=== PATIENT | female | born 1950 | race Caucasian/White ===

== ENCOUNTER → 2017-10-28 14:00 | Emergency (ER) | payer MEDICARE, BC ==
[~2017-10-28 14:00] MED LIST: NS 0.9% 1000 ML* 1,000 ML IV ONE; NS 0.9% 50 ML* 50 ML ONE; Pantoprazole IV* 40 MG IV ONE; cefTRIAXone VIAL(*) 1,000 MG in D5W 50 ML BAG* 50 ML IVPB ONE; cefTRIAXone VIAL(*) 1,000 MG in NS 0.9% 50 ML* 50 ML IVPB ONE
[2017-10-28 15:57] LABS: Hematocrit 33 % (35-47); Hemoglobin 10.5 g/dl (12.0-16.0); Mean Corpuscular HGB Conc 32 g/dl (31-36); Mean Corpuscular Hemoglobin 27 pg (27-31); Mean Corpuscular Volume 83 fL (80-97); Mean Platelet Volume 7 um3 (7.4-10.4); Red Blood Count 3.94 10^6/ul (4.0-5.4); Red Cell Distribution Width 16 % (10.5-15); White Blood Count 8.4 10^3/ul (3.5-10.8)
--- NOTE | 2017-10-28 16:08 | RAD ---
Indication: Shortness of breath. 2 views of the chest are reviewed. No mediastinal shift is noted. Heart is of normal size and configuration. There is a hiatal hernia present. Airspace disease and density is noted in the right lung base. Left lung field is clear. IMPRESSION: Suggestion of right basilar airspace disease which May represent atelectasis or pneumonia. Other etiologies in the right base cannot BE excluded.
[2017-10-28 16:13] LABS: Troponin I 0.04 ng/mL (<0.04)
[2017-10-28 16:19] LABS: Albumin 4.1 g/dL (3.2-5.2); BUN/Creatinine Ratio 21.3 (8-20); C Reactive Protein 16.89 mg/L (< 5.00); Calcium 9.2 mg/dL (8.6-10.3); EGFR African American 91.5 (>60); EGFR Non-African American 71.1 (>60); Globulin 3.1 g/dL (2-4); Potassium 3.9 mmol/L (3.5-5.0); Total Bilirubin 0.3 mg/dL (0.2-1.0); Total Protein 7.2 g/dL (6.4-8.9)
--- NOTE | 2017-10-28 17:59 | ED ---
Osman Croft Angela, scribed for Power Zimmer MD on 10/28/17 at 1503 . Shortness of Breath - HPI Summary HPI Summary: This pt is a 67 y/o female presenting to [facility] c/o SOB on minimal exertion since yesterday. Pt reports that she had a right lobe lung biopsy yesterday at [facility] in [facility]. Pt states that she sees a rack pusher in [facility] for nodules in her lungs, which have been stable for some time. She notes she had a CT scan done 1 week ago that showed enlargement of the nodules within a 6 month - 1 year period. Last night, pt noticed that she had SOB on minimal exertion, which continues today. She additionally c/o coughing up some blood last night, very dark stools ("like black"), gurgling "air movement" in abd. She denies chest pain, fever, rhinorrhea, sore throat, nausea, vomiting, abd pain. Pt is not on any anticoagulants. She last took Meloxicam 3 days ago (02/06). She believes her last colonoscopy was in 2009. Pt had breast CA 23 years ago and had lumpectomy. Pt is followed up by Dr. Ren Pak ([phone]) at [facility]. Her biopsy was done by Dr. Ugalde ([phone]) at [facility]. - History of Current Complaint Chief Complaint: EDShortnessOfBreath Time Seen by Provider: 10/28/17 14:59 Hx Obtained From: Patient Onset/Duration: Lasting Days - 1, Still Present Timing: Constant Dyspnea At: Exertion - minimal Aggrevating Factors: Other - minimal exertion Alleviating Factors: Other - rest Associated Signs & Symptoms: Cough (Bloody Sputum) - Allergy/Home Medications Allergies/Adverse Reactions: Allergies Allergy/AdvReac Type Severity Reaction Status Date / Time Codeine Allergy GI Upset Verified 12/14/15 09:37 Latex Allergy Itching Verified 12/14/15 09:36 Home Medications: Home Medications Meloxicam(NF) [Mobic(NF)] 7.5 mg PO BID 10/28/17 [History Confirmed 10/28/17] Tramadol-Acetaminophen [Ultracet] 1 tab PO Q8HR 10/28/17 [History Confirmed 05/09] PMH/Surg Hx/FS Hx/Imm Hx Endocrine/Hematology History: Reports: Hx Thyroid Disease - HYPOTHYROIDISM Denies: Hx Diabetes Cardiovascular History: Reports: Hx Angina - THROAT TO CENTER CHEST, Hx Hypercholesterolemia, Other Cardiovascular Problems/Disorders - lung nodules Denies: Hx Hypertension, Hx Pacemaker/ICD Respiratory History: Reports: Other Respiratory Problems/Disorders - BENIGN LUNG NODULES GI History: Reports: Hx Gastroesophageal Reflux Disease, Hx Hiatal Hernia - NEW ON CT 12/20/13 History: Denies: Hx Dialysis, Hx Renal Disease Musculoskeletal History: Reports: Hx Arthritis Sensory History: Reports: Hx Contacts or Glasses Denies: Hx Hearing Aid Opthamlomology History: Reports: Hx Contacts or Glasses Psychiatric History: Denies: Hx Panic Disorder - Cancer History Cancer Type, Location and Year: LEFT breast cancer, in remission Hx Chemotherapy: Yes Hx Radiation Therapy: Yes Hx Palliative Cancer Treatment: Yes - LUMPECTOMY - Surgical History Surgery Procedure, Year, and Place: tonsilectomy; cholecystectomy; LEFT lumpectomy; lymph removal; LEFT TOTAL KNEE REPLACEMENT; LEFT FOOT BUNIONECTOMY Hx Anesthesia Reactions: No - Immunization History Date of Tetanus Vaccine: UTD Date of Influenza Vaccine: 08/2017 Infectious Disease History: No Infectious Disease History: Denies: Traveled Outside the [place] in Last 30 Days - Family History Known Family History: Positive: Cardiac Disease - grandmother, Other - Mother: CHF Negative: Diabetes - Social History Alcohol Use: Daily Alcohol Amount: glass of wine Substance Use Type: Reports: None Smoking Status (MU): Former Smoker Review of Systems Negative: Fever, Chills Negative: Sore Throat, Nasal Discharge Negative: Chest Pain Positive: Shortness Of Breath, Cough - blood Gastrointestinal: Other - gurgling "air movement", black stools Negative: Abdominal Pain, Vomiting, Nausea Genitourinary: Other Positive: no symptoms reported Skin: Negative Neurological: Negative All Other Systems Reviewed And Are Negative: Yes Physical Exam - Summary Physical Exam Summary: VITAL SIGNS: Reviewed. GENERAL: Patient is a well-developed and nourished female who is lying comfortable in the stretcher. Patient is not in any acute respiratory distress. HEAD AND FACE: No signs of trauma. No ecchymosis, hematomas or skull depressions. No sinus tenderness. EYES: PERRLA, EOMI x 2, No injected conjunctiva, no nystagmus. EARS: Hearing grossly intact. Ear canals and tympanic membranes are within normal limits. MOUTH: Oropharynx within normal limits. NECK: Supple, trachea is midline, no adenopathy, no JVD, no carotid bruit, no c- spine tenderness, neck with full ROM. CHEST: Symmetric, no tenderness at palpation LUNGS: Clear to auscultation bilaterally. No wheezing or crackles. CVS: Regular rate and rhythm, S1 and S2 present, no murmurs or gallops appreciated. ABDOMEN: Soft, non-tender. No signs of distention. No rebound no guarding, and no masses palpated. Bowel sounds are normal. Rectal Exam: Pt has melena. No external hemorrhoids. Normal sphincter tone. EXTREMITIES: FROM in all major joints, no edema, no cyanosis or clubbing. NEURO: Alert and oriented x 3. No acute neurological deficits. Speech is normal and follows commands. SKIN: Dry and warm Triage Information Reviewed: Yes Vital Signs On Initial Exam: Initial Vitals Temp Pulse Resp BP Pulse Ox 97.0 F 73 15 137/76 96 10/28/17 14:01 10/28/17 14:01 10/28/17 14:01 10/28/17 14:01 10/28/17 14:01 Vital Signs Reviewed: Yes - Jonathon Coma Scale Coma Scale Total: 15 Diagnostics - Vital Signs Vital Signs Temp Pulse Resp BP Pulse Ox 10/28/17 14:01 97.0 F 73 15 137/76 96 - Laboratory Lab Results: Lab Results 10/28/17 10/28/17 10/28/17 Range/Units 15:31 15:31 15:31 WBC (3.5-10.8) 10^3/ul RBC (4.0-5.4) 10^6/ul Hgb (12.0-16.0) g/dl Hct (35-47) % MCV (80-97) fL MCH (27-31) pg MCHC (31-36) g/dl RDW (10.5-15) % Plt Count (150-450) 10^3/ul MPV (7.4-10.4) um3 Neut % (Auto) (38-83) % Lymph % (Auto) (25-47) % Livingston % (Auto) (1-9) % Eos % (Auto) (0-6) % Baso % (Auto) (0-2) % Absolute Neuts (auto) (1.5-7.7) 10^3/ul Absolute Lymphs (auto) (1.0-4.8) 10^3/ul Absolute Monos (auto) (0-0.8) 10^3/ul Absolute Eos (auto) (0-0.6) 10^3/ul Absolute Basos (auto) (0-0.2) 10^3/ul Absolute Nucleated RBC 10^3/ul Nucleated RBC % APTT 28.0 (26.0-36.3) seconds Sodium (133-145) mmol/L Potassium (3.5-5.0) mmol/L Chloride (101-111) mmol/L Carbon Dioxide (22-32) mmol/L Anion Gap (2-11) mmol/L BUN (6-24) mg/dL Creatinine (0.51-0.95) mg/dL Est GFR ( Amer) (>60) Est GFR (Non-Af Amer) (>60) BUN/Creatinine Ratio (8-20) Glucose (70-100) mg/dL Lactic Acid (0.5-2.0) mmol/L Calcium (8.6-10.3) mg/dL Total Bilirubin (0.2-1.0) mg/dL AST (13-39) U/L ALT (7-52) U/L Alkaline Phosphatase (34-104) U/L Total Creatine Kinase (10-223) U/L CK-MB (CK-2) (0.6-6.3) ng/mL Troponin I (<0.04) ng/mL C-Reactive Protein (< 5.00) mg/L B-Natriuretic Peptide 93 ( - 100) pg/mL Total Protein (6.4-8.9) g/dL Albumin (3.2-5.2) g/dL Globulin (2-4) g/dL Albumin/Globulin Ratio (1-3) Blood Type AB Positive Antibody Screen Negative 10/28/17 10/28/17 10/28/17 Range/Units 15:31 15:31 15:31 WBC 8.4 (3.5-10.8) 10^3/ul RBC 3.94 L (4.0-5.4) 10^6/ul Hgb 10.5 L (12.0-16.0) g/dl Hct 33 L (35-47) % MCV 83 (80-97) fL MCH 27 (27-31) pg MCHC 32 (31-36) g/dl RDW 16 H (10.5-15) % Plt Count 339 (150-450) 10^3/ul MPV 7 L (7.4-10.4) um3 Neut % (Auto) 69.5 (38-83) % Lymph % (Auto) 18.9 L (25-47) % Livingston % (Auto) 8.1 (1-9) % Eos % (Auto) 2.6 (0-6) % Baso % (Auto) 0.9 (0-2) % Absolute Neuts (auto) 5.8 (1.5-7.7) 10^3/ul Absolute Lymphs (auto) 1.6 (1.0-4.8) 10^3/ul Absolute Monos (auto) 0.7 (0-0.8) 10^3/ul Absolute Eos (auto) 0.2 (0-0.6) 10^3/ul Absolute Basos (auto) 0.1 (0-0.2) 10^3/ul Absolute Nucleated RBC 0 10^3/ul Nucleated RBC % 0 APTT (26.0-36.3) seconds Sodium 139 (133-145) mmol/L Potassium 3.9 (3.5-5.0) mmol/L Chloride 106 (101-111) mmol/L Carbon Dioxide 28 (22-32) mmol/L Anion Gap 5 (2-11) mmol/L BUN 17 (6-24) mg/dL Creatinine 0.80 (0.51-0.95) mg/dL Est GFR ( Amer) 91.5 (>60) Est GFR (Non-Af Amer) 71.1 (>60) BUN/Creatinine Ratio 21.3 H (8-20) Glucose 94 (70-100) mg/dL Lactic Acid 0.9 (0.5-2.0) mmol/L Calcium 9.2 (8.6-10.3) mg/dL Total Bilirubin 0.30 (0.2-1.0) mg/dL AST 22 (13-39) U/L ALT 20 (7-52) U/L Alkaline Phosphatase 111 H (34-104) U/L Total Creatine Kinase 45 (10-223) U/L CK-MB (CK-2) 2.0 (0.6-6.3) ng/mL Troponin I 0.04 H* (<0.04) ng/mL C-Reactive Protein 16.89 H (< 5.00) mg/L B-Natriuretic Peptide ( - 100) pg/mL Total Protein 7.2 (6.4-8.9) g/dL Albumin 4.1 (3.2-5.2) g/dL Globulin 3.1 (2-4) g/dL Albumin/Globulin Ratio 1.3 (1-3) Blood Type Antibody Screen Result Diagrams: 10/28/17 15:31 10/28/17 15:31 Lab Statement: Any lab studies that have been ordered have been reviewed, and results considered in the medical decision making process. - Radiology Chest XR Xray Interpretation: Positive (See Comments) - IMPRESSION: Suggestion of right basilar airspace disease which may represent atelectasis or pneumonia. Other etiologies in the right base cannot be excluded. ED physician has reviewed this radiology report and agrees. Radiology Interpretation Completed By: Radiologist - EKG 1540 Cardiac Rate: NL EKG Rhythm: Sinus Rhythm - at 67 bpm EKG Interpretation: No ST elevations Course/Dx - Course Assessment/Plan: This pt is a 67 y/o female presenting to [facility] c/o SOB on minimal exertion since yesterday. Pt reports that she had a right lobe lung biopsy yesterday at [facility] in [facility]. Pt states that she sees a rack pusher in [facility] for nodules in her lungs, which have been stable for some time. She notes she had a CT scan done 1 week ago that showed enlargement of the nodules within a 6 month - 1 year period. Last night, pt noticed that she had SOB on minimal exertion, which continues today. She additionally c/o coughing up some blood last night, very dark stools ("like black"), gurgling "air movement" in abd. She denies chest pain, fever, rhinorrhea, sore throat, nausea, vomiting, abd pain. Pt is not on any anticoagulants. She last took Meloxicam 3 days ago (Thursday10/25/17). She believes her last colonoscopy was in 2009. Pt had breast CA 23 years ago and had lumpectomy. Test results without any significant abnormalities slight anemia, hemoglobin of 10.5 hematocrit of 33, troponin of 0.04, CRP of 16.89. Pt is positive for occult blood. Chest XR shows suggestion of right basilar airspace disease which may represent atelectasis or pneumonia. Other etiologies in the right base cannot be excluded. Initially the pt was given IV fluids and she was also given Protonix for a GI bleed. She was started on Rocephin for a possible pneumonia. Since there are no GI services or rack pusher services at this time I discussed the case with the Transfer Center at [facility]. Dr. Omer is the accepting physician. At this point, the pt is hemodynamically stable. She will be transferred for further assessment of a GI bleed and hemoptysis. - Diagnoses Differential Diagnosis/HQI/PQRI: Positive: Airway Obstruction, Asthma, Chest Wall Pain, Pneumothorax Provider Diagnoses: GI bleed, Hemoptysis, Anemia - Physician Notifications Discussed Care of Patient With: Transfer Center at [facility] Time Discussed With Above Provider: 17:26 Instructed by Provider To: Other - I discussed the case with the Transfer Center at [facility], who accepted the pt for transfer. The accepting physician is Dr. Omer. - Critical Care Time Critical Care Time: 30-74 min Discharge - Discharge Plan Condition: Stable Disposition: TRANS HIGHER LVL OF CARE FAC Discharge Disposition Comment: [facility] Referrals: Jenn DICKERSON,Vivi Dougherty [Primary Care Provider] - The documentation as recorded by the Osman somers Angela accurately reflects the service I personally performed and the decisions made by me, Power Zimmer MD.
[2017-10-28 18:46] VITALS: BP 146/78
== END | disposition short-term general hospital (02) ==
LOC: ED 14:00
DX: K92.2 Gastrointestinal hemorrhage, unspecified (principal); R04.2 Hemoptysis; D64.9 Anemia, unspecified; R05 Cough; R06.02 Shortness of breath
CPT/HCPCS: 36415; 71020; 80053; 82270; 82550; 82553; 83605; 83880; 84484; 85025; 85730; 86140; 86850; 86900; 86901; 87040; 87070; 87077; 87205; 93005; 96374; 99285; J0696

== ENCOUNTER 2022-09-25 23:52 | Observation (INO) ==
[2022-09-26] MEDS ORDERED: NS 0.9% 1000 ml BAG 1,000 ML IV ONE (03:53)
[2022-09-26 04:22] LABS: ABS Eosinophils 0.4 10^3/ul (0-0.6); ABS Lymphocytes 0.5 10^3/ul (1.0-4.8); ABS Monocytes 0.7 10^3/ul (0-0.8); ABS Neutrophils 6.5 10^3/ul (1.5-7.7); Eosinophil % 4.4 %; Hematocrit 37 % (35-47); Hemoglobin 11.9 g/dL (12.0-16.0); Lymphocyte % 6.6 %; Mean Corpuscular HGB Conc 32 g/dL (31-36); Mean Corpuscular Hemoglobin 30 pg (27-31); Mean Corpuscular Volume 93 fL (80-97); Mean Platelet Volume 6.9 fL (7.4-10.4); Platelet Count 272 10^3/uL (150-450); Red Blood Count 3.95 10^6 /uL (3.70-4.87); Red Cell Distribution Width 14 % (10-15); White Blood Count 8.1 10^3/uL (3.5-10.8)
[2022-09-26 04:32] LABS: Activated Partial Thrombo Time 31.2 seconds (26.0-38.0); INR 0.95 (0.89-1.11)
[2022-09-26 05:14] LABS: Albumin/Globulin Ratio 1.7 (1-3); Calcium 9.2 mg/dL (8.6-10.3); Globulin 2.4 g/dL (2-4); Magnesium 2.1 mg/dL (1.9-2.7); Potassium 4.3 mmol/L (3.5-5.0); Total Bilirubin 0.4 mg/dL (0.2-1.0); Total Protein 6.4 g/dL (6.4-8.9); eGFR CKD-EPI 51.1 (>60)
[2022-09-26 05:28] LABS: TSH Ultra Thyroid Stim Horm 2.24 mcIU/mL (0.34-5.60)
[2022-09-26 05:34] LABS: High Sensitivity Troponin 1 Hr 3 pg/mL (<15)
[2022-09-26 07:17] LABS: Urine Appearance Clear; Urine Bilirubin Negative (Negative); Urine Blood Negative (Negative); Urine Color Straw; Urine Glucose Negative (Negative); Urine Ketones Negative (Negative); Urine Nitrite Negative (Negative); Urine Protein Negative (Negative); Urine Specific Gravity 1.005 (1.002-1.030); Urine Urobilinogen Negative (Negative)
[2022-09-26] MEDS ORDERED: Isosorbide Mononit ER 30mg TAB PO SCH (09:00)
[2022-09-26] MEDS: Enoxaparin 40 MG/0.4 ML SYR SUBCUT SCH (11:17)
[2022-09-26] MEDS ORDERED: TRAMADOL ACETAMINOPHEN PO SCH (14:00)
[2022-09-27 05:59] LABS: ABS Basophils 0.1 10^3/ul (0-0.2); ABS Eosinophils 0.6 10^3/ul (0-0.6); ABS Lymphocytes 0.6 10^3/ul (1.0-4.8); ABS Monocytes 0.6 10^3/ul (0-0.8); ABS Neutrophils 3.9 10^3/ul (1.5-7.7); Eosinophil % 10.4 %; Hematocrit 36 % (35-47); Hemoglobin 11.7 g/dL (12.0-16.0); Lymphocyte % 10.4 %; Mean Corpuscular HGB Conc 33 g/dL (31-36); Mean Corpuscular Hemoglobin 31 pg (27-31); Mean Corpuscular Volume 93 fL (80-97); Platelet Count 243 10^3/uL (150-450); Red Blood Count 3.85 10^6 /uL (3.70-4.87); Red Cell Distribution Width 14 % (10-15); White Blood Count 5.7 10^3/uL (3.5-10.8)
[2022-09-27 06:16] LABS: Calcium 8.7 mg/dL (8.6-10.3); Potassium 3.9 mmol/L (3.5-5.0); eGFR CKD-EPI 59.8 (>60)
[2022-09-27] MEDS: Enoxaparin 40 MG/0.4 ML SYR SUBCUT SCH (09:35)
[2022-09-27 11:17] VITALS: BP 106/54
== END 2022-09-27 12:52 | disposition home or self-care (01) ==
LOC: ED 23:52 → EDHOLD 23:52 → MEDTELE 09-26 16:11
PROVIDERS: ADMIT Internal Medicine; ATTEND Internal Medicine